=== PATIENT | male | born 1960 | race Hispanic/Latino ===

== ENCOUNTER 2022-02-05 05:51 | Emergency (ER) | payer OTHER, SELFPAY ==
[2022-02-05] MEDS ORDERED: Ketorolac Tromethamine 30 MG/ML VIAL ONE (06:12)
== END 2022-02-05 06:40 | disposition home or self-care (01) ==
LOC: ERS 05:51
DX: S29.011A Strain of muscle and tendon of front wall of thorax, initial encounter (principal); E11.9 Type 2 diabetes mellitus without complications; F17.210 Nicotine dependence, cigarettes, uncomplicated; X50.0XXA Overexertion from strenuous movement or load, initial encounter
CPT/HCPCS: 96372; 99283; J1885

== ENCOUNTER 2022-04-12 06:17 | Emergency (ER) | payer BC, SELFPAY ==
[2022-04-12 07:18] LABS: #Eosinphils 0.3 thou/uL (0.0-0.7); #Lymphocytes 1.7 thou/uL (1.20-3.40); #Monocytes 0.5 thou/uL (0.11-0.59); #Neutrophils 4.1 thou/uL (1.40-6.50); %Basophils 0.3 % (0.0-1.0); %Eosinophils 4.4 % (0.0-10.0); %Lymphocytes 25.9 % (21.0-51.0); %Monocytes 8.1 % (0.0-10.0); %Neutrophils 61.3 % (42.0-75.0); Hemoglobin 12.6 g/dL (14.0-18.0); Mean Corpuscular HGB CONC 32.9 g/dL (32.0-36.0); Mean Corpuscular Hemoglobin 29.5 pg (27.0-31.0); Mean Corpuscular Volume 89.8 fL (78.0-98.0); Mean Platelet Volume 8.7 fL (7.4-10.4); Platelet Count 196 thou/uL (130-400); RBC Distribution Width 12.9 % (11.5-14.5); Red Blood Cell (RBC) Count 4.28 mill/uL (4.70-6.10); White Blood Cell (WBC) Count 6.7 thou/uL (4.8-10.8)
[2022-04-12 07:28] LABS: ALT (SGPT) 66 U/L (8-55); AST (SGOT) 89 U/L (5-34); Albumin 2.9 g/dL (3.5-5.0); Alkaline Phosphatase 226 U/L (40-110); Anion Gap 13 mmol/L (10-20); BUN (Urea Nitrogen) 13 mg/dL (8.4-25.7); Calc. Creatinine Clearance 0 mL/min (70-130); Calcium 8.9 mg/dL (7.8-10.44); Carbon Dioxide 23 mmol/L (22-29); Chloride 102 mmol/L (98-107); Globulin 4.6 g/dL (2.4-3.5); Glucose 258 mg/dL (70-105); Potassium 4.2 mmol/L (3.5-5.1); Protein, Total 7.5 g/dL (6.0-8.3); Sodium 134 mmol/L (136-145)
== END 2022-04-12 08:15 | disposition home or self-care (01) ==
LOC: ERS 06:17
DX: R06.02 Shortness of breath (principal); R06.4 Hyperventilation; I10 Essential (primary) hypertension; E11.9 Type 2 diabetes mellitus without complications; F17.210 Nicotine dependence, cigarettes, uncomplicated; Z79.84 Long term (current) use of oral hypoglycemic drugs; Z79.899 Other long term (current) drug therapy
CPT/HCPCS: 36415; 36416; 71045; 80053; 83880; 84484; 85025; 93005

== ENCOUNTER 2023-07-20 12:22 | Inpatient (IN) | payer BC, SELFPAY ==
[2023-07-20 12:56] LABS: #Eosinphils 0.1 thou/uL (0.0-0.7); #Monocytes 1.2 thou/uL (0.11-0.59); #Neutrophils 13.4 thou/uL (1.40-6.50); %Basophils 0.2 % (0.0-1.0); %Eosinophils 0.3 % (0.0-10.0); %Lymphocytes 8.7 % (21.0-51.0); %Monocytes 7.2 % (0.0-10.0); %Neutrophils 82.8 % (42.0-75.0); Hemoglobin 6.7 g/dL (14.0-18.0); Mean Corpuscular HGB CONC 27.9 g/dL (32.0-36.0); Mean Corpuscular Hemoglobin 17.8 pg (27.0-31.0); Mean Corpuscular Volume 63.8 fl (78.0-98.0); Mean Platelet Volume 8.6 fL (7.4-10.4); Platelet Count 328 10x3/uL (130-400); RBC Distribution Width 17.1 % (11.5-14.5); Red Blood Cell (RBC) Count 3.76 mill/uL (4.70-6.10); White Blood Cell (WBC) Count 16.2 10x3/uL (4.8-10.8)
[2023-07-20 13:26] LABS: ALT (SGPT) 21 U/L (8-55); AST (SGOT) 40 U/L (5-34); Albumin 2.4 g/dL (3.4-4.8); Alkaline Phosphatase 165 U/L (40-110); Anion Gap 10 mmol/L (10-20); BUN (Urea Nitrogen) 14 mg/dL (8.4-25.7); Bilirubin, Total 0.6 mg/dL (0.2-1.2); Calc. Creatinine Clearance 0 mL/min (70-130); Calcium 8.4 mg/dL (7.8-10.44); Carbon Dioxide 20 mmol/L (23-31); Chloride 100 mmol/L (98-107); Estimated GFR 101; Globulin 5.4 g/dL (2.4-3.5); Glucose 170 mg/dL (80-115); Protein, Total 7.8 g/dL (5.8-8.1); Sodium 126 mmol/L (136-145)
[2023-07-20 13:34] LABS: Anisocytosis SLIGHT = 6-15 cells HPF (0-5); CellaVision Operator ID LAB.MJL; Hypochromia SLIGHT = 6-15 cells HPF (0-5); Microcytosis SLIGHT = 6-15 cells HPF (0-5); Ovalocytes SLIGHT = 2-5 cells HPF (0-1); Platelet Adequacy Comment Platelets Normal; Polychromasia SLIGHT = 2-3 cells HPF (0-2)
[2023-07-20 13:49] LABS: PTT 35.6 sec (22.9-36.1); Prothrombin Time 13.6 sec (12.0-14.7)
[2023-07-20] MEDS ORDERED: Vancomycin 1 GM/200 ML (FROZEN) BAG ONE (14:22)
[2023-07-20] MEDS ORDERED: Morphine 4 MG/ML VIAL ONE (14:22)
[2023-07-20] MEDS ORDERED: Ondansetron PF 4 MG/2 ML Vial ONE (14:22)
[2023-07-20 14:40] LABS: Bacteria/HPF None Seen HPF (None Seen); Bilirubin Negative (Negative); Blood, Urine Trace (Negative); CAUTI Indications for Culture Pelvic or flank pain; Clarity Clear (Clear); Glucose, Urine (Dipstick) 30 mg/dL (Negative); Ketone, Urine Negative (Negative); Leukocyte Negative Leu/uL (Negative); Nitrite Negative (Negative); Protein, Urine (Dipstick) 300 mg/dL (Neg-Trace); RBC/HPF 0-3 HPF (0-3); Specific Gravity, Urine 1.015 (1.002-1.036); Squamous Epithelial None Seen HPF (0-3); WBC/HPF 0-3 HPF (0-3)
[2023-07-20 14:42] LABS: Urine Culture Reflex No No
[2023-07-20] MEDS ORDERED: Cefepime 2 GM VIAL ONE (15:27)
[2023-07-20] MEDS ORDERED: Clindamycin/D5W 900 MG in Premix Bag 1 BAG IVPB SCH (15:30)
[2023-07-20] MEDS ORDERED: Dextrose 5% in Water 1,000 ML IV PRN (16:33)
[2023-07-20] MEDS ORDERED: Ondansetron ODT 4 MG TAB PO PRN (16:33)
[2023-07-20] MEDS ORDERED: Glucagon 1 MG/ML KIT IM PRN (16:33)
[2023-07-20] MEDS ORDERED: Acetaminophen 325 MG TAB PO PRN (16:33)
[2023-07-20] MEDS ORDERED: Dextrose 50% Abboject 50 ML SYRINGE SLOW IVP PRN (16:33)
[2023-07-20] MEDS ORDERED: HumaLOG 300 UNITS/3 ML VIAL SC PRN (16:44)
[2023-07-20] MEDS ORDERED: Sodium Chloride 0.9% 1,000 ML IV SCH (17:15)
[2023-07-20 20:00] LABS: Iron 34 ug/dL (65-175); Iron Binding Capacity, Total 351 mcg/dL (261-462)
[2023-07-20] MEDS: Gabapentin 300 MG CAP PO SCH (20:59)
[2023-07-20] MEDS: metFORMIN 500 MG TAB PO SCH (21:02)
[2023-07-20 23:40] VITALS: BMI 29.7
[2023-07-21] MEDS ORDERED: Clindamycin/D5W 900 MG in Premix Bag 1 BAG IVPB SCH (01:00)
[2023-07-21 01:03] LABS: Hematocrit 23.6 % (42.0-52.0); Platelet Count 278 10x3/uL (130-400)
[2023-07-21] MEDS: Clindamycin 150 MG CAP PO SCH ×2 (01:56→09:52)
[2023-07-21] MEDS ORDERED: Cefepime 1 GM in Sodium Chloride 0.9% 100 ML IVPB SCH (04:00)
[2023-07-21 05:25] LABS: #Basophils 0.1 thou/uL (0.0-0.2); #Eosinphils 0.3 thou/uL (0.0-0.7); #Monocytes 1.5 thou/uL (0.11-0.59); #Neutrophils 15.3 thou/uL (1.40-6.50); %Basophils 0.4 % (0.0-1.0); %Eosinophils 1.5 % (0.0-10.0); %Lymphocytes 7.5 % (21.0-51.0); %Monocytes 7.9 % (0.0-10.0); %Neutrophils 81.6 % (42.0-75.0); Hematocrit 23.6 % (42.0-52.0); Hemoglobin 6.8 g/dL (14.0-18.0); Mean Corpuscular HGB CONC 28.8 g/dL (32.0-36.0); Mean Corpuscular Hemoglobin 19.2 pg (27.0-31.0); Mean Platelet Volume 8.5 fL (7.4-10.4); Platelet Count 293 10x3/uL (130-400); RBC Distribution Width 18.9 % (11.5-14.5); Red Blood Cell (RBC) Count 3.55 mill/uL (4.70-6.10); White Blood Cell (WBC) Count 18.8 10x3/uL (4.8-10.8)
[2023-07-21 05:30] LABS: Mean Corpuscular Volume 66.5 fl (78.0-98.0)
[2023-07-21 05:53] LABS: ALT (SGPT) 20 U/L (8-55); AST (SGOT) 33 U/L (5-34); Alkaline Phosphatase 168 U/L (40-110); Anion Gap 8 mmol/L (10-20); BUN (Urea Nitrogen) 11 mg/dL (8.4-25.7); Bilirubin, Total 0.8 mg/dL (0.2-1.2); Calc. Creatinine Clearance 137 mL/min (70-130); Calcium 7.8 mg/dL (7.8-10.44); Carbon Dioxide 21 mmol/L (23-31); Chloride 103 mmol/L (98-107); Estimated GFR 105; Globulin 4.8 g/dL (2.4-3.5); Glucose 168 mg/dL (80-115); Potassium 3.6 mmol/L (3.5-5.1); Protein, Total 6.8 g/dL (5.8-8.1); Sodium 128 mmol/L (136-145)
[2023-07-21] MEDS ORDERED: Sodium Chloride 0.9% 1,000 ML IV SCH (08:15)
[2023-07-21] MEDS ORDERED: Ferrous Sulfate 325 MG TAB PO SCH (08:30)
[2023-07-21] MEDS ORDERED: Lisinopril 2.5 MG TAB PO SCH (09:00)
[2023-07-21] MEDS ORDERED: Liraglutide [Victoza 2-Pak] 0.6 MG/0.1 ML Pen.Injctr SC SCH (09:00)
[2023-07-21] MEDS ORDERED: Lisinopril 5 MG TAB PO SCH (09:00)
[2023-07-21] MEDS ORDERED: Furosemide 20 MG/2 ML VIAL SLOW IVP SCH (09:00)
[2023-07-21] MEDS: metFORMIN 500 MG TAB PO SCH ×2 (09:42→19:59)
[2023-07-21] MEDS: Gabapentin 300 MG CAP PO SCH ×3 (09:42→19:58)
[2023-07-21] MEDS: Amitriptyline HCl 25 MG TAB PO SCH (09:43)
[2023-07-21] MEDS: Sodium Chloride 0.9% 1,000 ML IV SCH ×2 (14:03→23:34)
[2023-07-21] MEDS ORDERED: Cefepime 2 GM in Sodium Chloride 0.9% 100 ML IVPB SCH (16:00)
[2023-07-21 17:55] LABS: Hematocrit 27.3 % (42.0-52.0); Hemoglobin 8.1 g/dL (14.0-18.0)
[2023-07-21] MEDS: Ketorolac Tromethamine 30 MG/ML VIAL IVP PRN (19:57)
[2023-07-21] MEDS: Linezolid 600 MG TAB PO SCH (19:59)
[2023-07-22 04:43] LABS: #Basophils 0.1 thou/uL (0.0-0.2); #Eosinphils 0.5 thou/uL (0.0-0.7); #Monocytes 1.4 thou/uL (0.11-0.59); #Neutrophils 14.2 thou/uL (1.40-6.50); %Basophils 0.3 % (0.0-1.0); %Eosinophils 2.8 % (0.0-10.0); %Lymphocytes 8.5 % (21.0-51.0); %Monocytes 7.4 % (0.0-10.0); %Neutrophils 77.7 % (42.0-75.0); Hematocrit 26.2 % (42.0-52.0); Hemoglobin 7.8 g/dL (14.0-18.0); Mean Corpuscular HGB CONC 29.8 g/dL (32.0-36.0); Mean Corpuscular Hemoglobin 20.6 pg (27.0-31.0); Mean Platelet Volume 8.4 fL (7.4-10.4); Platelet Count 299 10x3/uL (130-400); RBC Distribution Width 20.6 % (11.5-14.5); Red Blood Cell (RBC) Count 3.79 mill/uL (4.70-6.10); White Blood Cell (WBC) Count 18.3 10x3/uL (4.8-10.8)
[2023-07-22 04:44] LABS: Mean Corpuscular Volume 69.1 fl (78.0-98.0)
[2023-07-22 05:10] LABS: ALT (SGPT) 17 U/L (8-55); AST (SGOT) 34 U/L (5-34); Albumin 1.9 g/dL (3.4-4.8); Alkaline Phosphatase 171 U/L (40-110); Anion Gap 10 mmol/L (10-20); BUN (Urea Nitrogen) 9 mg/dL (8.4-25.7); Bilirubin, Total 0.6 mg/dL (0.2-1.2); Calc. Creatinine Clearance 130 mL/min (70-130); Calcium 7.9 mg/dL (7.8-10.44); Carbon Dioxide 20 mmol/L (23-31); Chloride 105 mmol/L (98-107); Estimated GFR 104; Globulin 4.8 g/dL (2.4-3.5); Glucose 151 mg/dL (80-115); Potassium 3.6 mmol/L (3.5-5.1); Protein, Total 6.7 g/dL (5.8-8.1); Sodium 131 mmol/L (136-145)
[2023-07-22 05:14] LABS: Anisocytosis MODERATE=16-30 cells HPF (0-5); CellaVision Operator ID lab.sh2; Hypochromia MODERATE=16-30 cells HPF (0-5); Macrocytosis SLIGHT = 6-15 cells HPF (0-5); Microcytosis SLIGHT = 6-15 cells HPF (0-5); Platelet Adequacy Comment Platelets Normal; Poikilocytosis SLIGHT = 6-15 cells HPF (0-5); Polychromasia MODERATE = 3-4 cells HPF (0-2)
[2023-07-22] MEDS: HumaLOG 300 UNITS/3 ML VIAL SC PRN (06:27)
[2023-07-22] MEDS: Linezolid 600 MG TAB PO SCH ×2 (09:18→20:07)
[2023-07-22] MEDS: Gabapentin 300 MG CAP PO SCH ×3 (09:18→20:07)
[2023-07-22] MEDS: metFORMIN 500 MG TAB PO SCH ×2 (09:19→20:08)
[2023-07-22] MEDS: Amitriptyline HCl 25 MG TAB PO SCH (09:19)
[2023-07-22] MEDS: Lisinopril 10 MG TAB PO SCH (09:19)
[2023-07-22] MEDS: Ketorolac Tromethamine 30 MG/ML VIAL IVP PRN (15:08)
[2023-07-22] MEDS ORDERED: Lidocaine 1% w/Epinephrine 1:100K 20 ML VIAL ONE (16:11)
[2023-07-22 17:39] LABS: Synovial Fluid, Protein 3.5 g/dL (Not Available); Synovial Fluid, Uric Acid 5.5 mg/dL (Not Available)
[2023-07-22 20:08] LABS: RBC Count-Automated (BF) 4748 /cu.mm; WBC/Nucleated-Auto (BF) 22920 /cu.mm
[2023-07-22 20:13] LABS: BF Color Yellow; Body Fluid Source Synovial Fluid; Clarity Cloudy/Turbid (Clear); Tube # EDTA
[2023-07-22 20:15] LABS: BF Segmented Neutrophils 81 %; Cell Count Non Hematic 18 %; Lymphocytes 1 %
[2023-07-23 04:07] LABS: #Basophils 0.1 thou/uL (0.0-0.2); #Eosinphils 0.5 thou/uL (0.0-0.7); #Monocytes 1.1 thou/uL (0.11-0.59); #Neutrophils 11.2 thou/uL (1.40-6.50); %Basophils 0.3 % (0.0-1.0); %Eosinophils 3.6 % (0.0-10.0); %Lymphocytes 10.8 % (21.0-51.0); Hematocrit 26.8 % (42.0-52.0); Hemoglobin 7.8 g/dL (14.0-18.0); Mean Corpuscular HGB CONC 29.1 g/dL (32.0-36.0); Mean Corpuscular Volume 68.7 fl (78.0-98.0); Mean Platelet Volume 8.4 fL (7.4-10.4); Platelet Count 328 10x3/uL (130-400); RBC Distribution Width 21.1 % (11.5-14.5); White Blood Cell (WBC) Count 14.9 10x3/uL (4.8-10.8)
[2023-07-23 04:31] LABS: ALT (SGPT) 16 U/L (8-55); AST (SGOT) 36 U/L (5-34); Alkaline Phosphatase 179 U/L (40-110); Anion Gap 12 mmol/L (10-20); BUN (Urea Nitrogen) 9 mg/dL (8.4-25.7); Bilirubin, Total 0.3 mg/dL (0.2-1.2); Calc. Creatinine Clearance 135 mL/min (70-130); Calcium 7.9 mg/dL (7.8-10.44); Carbon Dioxide 18 mmol/L (23-31); Chloride 103 mmol/L (98-107); Estimated GFR 105; Globulin 4.9 g/dL (2.4-3.5); Glucose 156 mg/dL (80-115); Potassium 3.7 mmol/L (3.5-5.1); Protein, Total 6.9 g/dL (5.8-8.1); Sodium 129 mmol/L (136-145)
[2023-07-23] MEDS: Ketorolac Tromethamine 30 MG/ML VIAL IVP PRN ×2 (05:28→17:29)
[2023-07-23] MEDS: Lactated Ringer's 1,000 ML IV SCH ×2 (06:42→15:38)
[2023-07-23] MEDS: Gabapentin 300 MG CAP PO SCH ×3 (09:34→20:57)
[2023-07-23] MEDS: Lisinopril 10 MG TAB PO SCH (09:34)
[2023-07-23] MEDS: metFORMIN 500 MG TAB PO SCH ×2 (09:34→20:57)
[2023-07-23] MEDS: Linezolid 600 MG TAB PO SCH ×2 (09:34→20:57)
[2023-07-23] MEDS: Ferrous Sulfate 325 MG TAB PO SCH (09:34)
[2023-07-24] MEDS: Morphine 2 MG/ML VIAL SLOW IVP PRN ×3 (00:31→23:33)
[2023-07-24 05:21] LABS: #Basophils 0.1 thou/uL (0.0-0.2); #Eosinphils 0.6 thou/uL (0.0-0.7); #Monocytes 0.7 thou/uL (0.11-0.59); #Neutrophils 9.4 thou/uL (1.40-6.50); %Basophils 0.6 % (0.0-1.0); %Eosinophils 4.7 % (0.0-10.0); %Lymphocytes 13.1 % (21.0-51.0); %Monocytes 5.8 % (0.0-10.0); %Neutrophils 74.1 % (42.0-75.0); Hematocrit 28.5 % (42.0-52.0); Hemoglobin 8.2 g/dL (14.0-18.0); Mean Corpuscular HGB CONC 28.8 g/dL (32.0-36.0); Mean Corpuscular Hemoglobin 19.9 pg (27.0-31.0); Mean Corpuscular Volume 69.2 fl (78.0-98.0); Mean Platelet Volume 8.5 fL (7.4-10.4); Platelet Count 369 10x3/uL (130-400); RBC Distribution Width 21.3 % (11.5-14.5); Red Blood Cell (RBC) Count 4.12 mill/uL (4.70-6.10); White Blood Cell (WBC) Count 12.7 10x3/uL (4.8-10.8)
[2023-07-24 05:54] LABS: ALT (SGPT) 16 U/L (8-55); AST (SGOT) 31 U/L (5-34); Alkaline Phosphatase 177 U/L (40-110); Anion Gap 13 mmol/L (10-20); BUN (Urea Nitrogen) 11 mg/dL (8.4-25.7); Bilirubin, Total 0.3 mg/dL (0.2-1.2); Calc. Creatinine Clearance 126 mL/min (70-130); Calcium 8.3 mg/dL (7.8-10.44); Carbon Dioxide 18 mmol/L (23-31); Chloride 103 mmol/L (98-107); Estimated GFR 103; Globulin 5.1 g/dL (2.4-3.5); Glucose 127 mg/dL (80-115); Potassium 3.9 mmol/L (3.5-5.1); Protein, Total 7.1 g/dL (5.8-8.1); Sodium 130 mmol/L (136-145)
[2023-07-24 07:25] LABS: CellaVision Operator ID LAB.CMB; Elliptocytes SLIGHT = 2-5 cells HPF (0-1); Large Platelets 1.9 % (0-5); Macrocytosis SLIGHT = 6-15 cells HPF (0-5); Platelet Adequacy Comment Platelets Normal; Polychromasia MODERATE = 3-4 cells HPF (0-2)
[2023-07-24] MEDS: metFORMIN 500 MG TAB PO SCH ×2 (08:07→20:27)
[2023-07-24] MEDS: Gabapentin 300 MG CAP PO SCH ×3 (08:08→20:27)
[2023-07-24] MEDS: Linezolid 600 MG TAB PO SCH ×2 (08:08→20:27)
[2023-07-24] MEDS: Lisinopril 10 MG TAB PO SCH (08:09)
[2023-07-24] MEDS: Ketorolac Tromethamine 30 MG/ML VIAL IVP PRN (12:03)
[2023-07-25 06:11] LABS: #Basophils 0.1 thou/uL (0.0-0.2); #Eosinphils 0.6 thou/uL (0.0-0.7); #Monocytes 0.7 thou/uL (0.11-0.59); #Neutrophils 9.4 thou/uL (1.40-6.50); %Basophils 0.4 % (0.0-1.0); %Eosinophils 4.4 % (0.0-10.0); %Lymphocytes 12.9 % (21.0-51.0); %Monocytes 5.5 % (0.0-10.0); %Neutrophils 75.7 % (42.0-75.0); Hematocrit 27.5 % (42.0-52.0); Hemoglobin 7.9 g/dL (14.0-18.0); Mean Corpuscular HGB CONC 28.7 g/dL (32.0-36.0); Mean Corpuscular Hemoglobin 19.9 pg (27.0-31.0); Mean Corpuscular Volume 69.4 fl (78.0-98.0); Mean Platelet Volume 8.2 fL (7.4-10.4); Platelet Count 352 10x3/uL (130-400); RBC Distribution Width 21.7 % (11.5-14.5); Red Blood Cell (RBC) Count 3.96 mill/uL (4.70-6.10); White Blood Cell (WBC) Count 12.4 10x3/uL (4.8-10.8)
[2023-07-25 06:33] LABS: ALT (SGPT) 17 U/L (8-55); AST (SGOT) 32 U/L (5-34); Albumin 1.9 g/dL (3.4-4.8); Alkaline Phosphatase 159 U/L (40-110); Anion Gap 14 mmol/L (10-20); BUN (Urea Nitrogen) 12 mg/dL (8.4-25.7); Bilirubin, Total 0.3 mg/dL (0.2-1.2); Calc. Creatinine Clearance 130 mL/min (70-130); Calcium 8.1 mg/dL (7.8-10.44); Carbon Dioxide 18 mmol/L (23-31); Chloride 103 mmol/L (98-107); Estimated GFR 104; Globulin 5.2 g/dL (2.4-3.5); Glucose 142 mg/dL (80-115); Magnesium 1.6 mg/dL (1.6-2.6); Potassium 4.5 mmol/L (3.5-5.1); Protein, Total 7.1 g/dL (5.8-8.1); Sodium 130 mmol/L (136-145)
[2023-07-25 06:56] LABS: CellaVision Operator ID lab.abc; Hypochromia SLIGHT = 6-15 cells HPF (0-5); Microcytosis SLIGHT = 6-15 cells HPF (0-5); Platelet Adequacy Comment Platelets Normal; Polychromasia SLIGHT = 2-3 cells HPF (0-2)
[2023-07-25] MEDS: metFORMIN 500 MG TAB PO SCH ×3 (09:38→20:39)
[2023-07-25] MEDS: Lisinopril 10 MG TAB PO SCH (09:38)
[2023-07-25] MEDS: Ferrous Sulfate 325 MG TAB PO SCH (09:38)
[2023-07-25] MEDS: Linezolid 600 MG TAB PO SCH ×2 (09:38→20:38)
[2023-07-25] MEDS: Gabapentin 300 MG CAP PO SCH ×3 (09:39→20:38)
[2023-07-25] MEDS ORDERED: Pantoprazole 40 MG VIAL IVP SCH (10:00)
[2023-07-25] MEDS ORDERED: Iopamidol-370 76% 500 ML MDV (1 ML CHARGE) ONE (11:23)
[2023-07-25] MEDS: oxyCODONE 5 MG TAB PO PRN ×2 (12:21→23:59)
[2023-07-25] MEDS ORDERED: GoLYTELY 4,000 ml Bottle PO SCH (18:45)
[2023-07-25] MEDS: Pantoprazole 40 MG VIAL IVP SCH (20:37)
[2023-07-25] MEDS: Morphine 2 MG/ML VIAL SLOW IVP PRN (20:43)
[2023-07-26] MEDS ORDERED: Octreotide Acetate 50 MCG/ML AMP SLOW IVP SCH (03:15)
[2023-07-26] MEDS: Octreotide Acetate 1,250 MCG in Sodium Chloride 0.9% 250 ML 250 ML IVPB SCH (04:45)
[2023-07-26 06:09] LABS: INR-International Normal Ratio 1.1; PTT 33.5 sec (22.9-36.1); Prothrombin Time 14.5 sec (12.0-14.7)
[2023-07-26 06:21] LABS: ALT (SGPT) 16 U/L (8-55); AST (SGOT) 38 U/L (5-34); Albumin 2.1 g/dL (3.4-4.8); Alkaline Phosphatase 161 U/L (40-110); Anion Gap 12 mmol/L (10-20); BUN (Urea Nitrogen) 9 mg/dL (8.4-25.7); Bilirubin, Total 0.4 mg/dL (0.2-1.2); Calc. Creatinine Clearance 131 mL/min (70-130); Calcium 8.4 mg/dL (7.8-10.44); Carbon Dioxide 21 mmol/L (23-31); Chloride 102 mmol/L (98-107); Estimated GFR 104; Globulin 5.6 g/dL (2.4-3.5); Glucose 109 mg/dL (80-115); Magnesium 1.6 mg/dL (1.6-2.6); Potassium 4.2 mmol/L (3.5-5.1); Protein, Total 7.7 g/dL (5.8-8.1); Sodium 131 mmol/L (136-145)
[2023-07-26 06:44] LABS: HBSAg Index 0.26 S/CO (0-0.99); Hep B Surf Ag Non-Reactive S/CO (NonReactive)
[2023-07-26 06:45] LABS: HBSAB Concentration 394.48 mIU/mL; Hep B Surf AB Reactive (NonReactive); Hep C IgG Ab Reflex HepC Qnt S/CO (NonReactive); Hep C Index 17.07 S/CO (0-0.79)
[2023-07-26 06:50] LABS: #Eosinphils 0.7 thou/uL (0.0-0.7); %Basophils 0.2 % (0.0-1.0); %Eosinophils 3.8 % (0.0-10.0); %Lymphocytes 8.9 % (21.0-51.0); %Monocytes 5.3 % (0.0-10.0); Mean Corpuscular HGB CONC 29.7 g/dL (32.0-36.0); Mean Corpuscular Hemoglobin 20.8 pg (27.0-31.0); Mean Platelet Volume 8.9 fL (7.4-10.4); Platelet Count 447 10x3/uL (130-400); RBC Distribution Width 21.4 % (11.5-14.5); Red Blood Cell (RBC) Count 2.07 mill/uL (4.70-6.10); White Blood Cell (WBC) Count 18.5 10x3/uL (4.8-10.8)
[2023-07-26 07:34] LABS: Anisocytosis SLIGHT = 6-15 cells HPF (0-5); CellaVision Operator ID lab.dlt; Hypochromia SLIGHT = 6-15 cells HPF (0-5); Large Platelets 1.7 % (0-5); Microcytosis SLIGHT = 6-15 cells HPF (0-5); Platelet Adequacy Comment Platelets Increased; Polychromasia SLIGHT = 2-3 cells HPF (0-2)
[2023-07-26 07:36] LABS: Hemoglobin 4.3 g/dL (14.0-18.0)
[2023-07-26 07:37] LABS: Hematocrit 14.5 % (42.0-52.0)
[2023-07-26 08:05] LABS: Hemoglobin 8.6 g/dL (14.0-18.0)
[2023-07-26 08:06] LABS: Hematocrit 28.9 % (42.0-52.0)
[2023-07-26] MEDS: Gabapentin 300 MG CAP PO SCH ×3 (08:48→20:27)
[2023-07-26] MEDS: Pantoprazole 40 MG VIAL IVP SCH ×2 (08:48→20:28)
[2023-07-26] MEDS: Lisinopril 10 MG TAB PO SCH (08:48)
[2023-07-26] MEDS: metFORMIN 500 MG TAB PO SCH ×2 (08:48→20:27)
[2023-07-26] MEDS: Linezolid 600 MG TAB PO SCH ×2 (08:48→20:27)
[2023-07-26 09:43] LABS: Creatinine, Urine 43.03 mg/dL (63-166)
[2023-07-26] MEDS ORDERED: fentaNYL PF 100 MCG/2 ML SYRINGE ONE (11:33)
[2023-07-26] MEDS ORDERED: Ondansetron PF 4 MG/2 ML Vial ONE (12:36)
[2023-07-26] MEDS ORDERED: Ondansetron HCl/PF 4 MG/2 ML Vial IVP PRN (13:15)
[2023-07-26] MEDS ORDERED: Promethazine HCl 25 MG/ML VIAL IM PRN (13:15)
[2023-07-26] MEDS ORDERED: HYDROmorphone 2 MG/ML VIAL SLOW IVP PRN (13:15)
[2023-07-26] MEDS ORDERED: HYDROmorphone 0.5 MG/0.5 ML SYRINGE ONE ×2 (13:16→13:34)
[2023-07-26] MEDS ORDERED: fentaNYL 50 mcg/mL 1 mL Vial ONE (13:47)
[2023-07-26] MEDS: CEFAZOLIN 2 GM in Sodium Chloride 0.9% 100 ML IVPB SCH ×2 (14:45→21:07)
[2023-07-26] MEDS: oxyCODONE 5 MG TAB PO PRN (20:33)
[2023-07-27] MEDS: oxyCODONE 5 MG TAB PO PRN ×2 (03:11→20:27)
[2023-07-27] MEDS: CEFAZOLIN 2 GM in Sodium Chloride 0.9% 100 ML IVPB SCH ×3 (05:05→21:53)
[2023-07-27] MEDS: Albumin 25% 25 GM/100 ML BOT IVPB SCH ×4 (06:15→23:51)
[2023-07-27] MEDS: Octreotide Acetate 1,250 MCG in Sodium Chloride 0.9% 250 ML 250 ML IVPB SCH (06:15)
[2023-07-27 06:34] LABS: #Eosinphils 0.3 thou/uL (0.0-0.7); #Monocytes 0.6 thou/uL (0.11-0.59); #Neutrophils 9.3 thou/uL (1.40-6.50); %Basophils 0.4 % (0.0-1.0); %Eosinophils 2.7 % (0.0-10.0); %Lymphocytes 9.5 % (21.0-51.0); %Monocytes 5.1 % (0.0-10.0); %Neutrophils 81.9 % (42.0-75.0); Hematocrit 26.8 % (42.0-52.0); Hemoglobin 7.8 g/dL (14.0-18.0); Mean Corpuscular HGB CONC 29.1 g/dL (32.0-36.0); Mean Corpuscular Hemoglobin 20.4 pg (27.0-31.0); Mean Platelet Volume 8.1 fL (7.4-10.4); Red Blood Cell (RBC) Count 3.83 mill/uL (4.70-6.10); White Blood Cell (WBC) Count 11.3 10x3/uL (4.8-10.8)
[2023-07-27 06:38] LABS: Platelet Count 310 10x3/uL (130-400)
[2023-07-27 07:03] LABS: ALT (SGPT) 16 U/L (8-55); AST (SGOT) 42 U/L (5-34); Albumin 1.9 g/dL (3.4-4.8); Alkaline Phosphatase 157 U/L (40-110); Anion Gap 12 mmol/L (10-20); BUN (Urea Nitrogen) 9 mg/dL (8.4-25.7); Bilirubin, Total 0.4 mg/dL (0.2-1.2); Calc. Creatinine Clearance 145 mL/min (70-130); Calcium 8.2 mg/dL (7.8-10.44); Carbon Dioxide 24 mmol/L (23-31); Chloride 101 mmol/L (98-107); Estimated GFR 107; Globulin 5.3 g/dL (2.4-3.5); Glucose 143 mg/dL (80-115); Magnesium 1.5 mg/dL (1.6-2.6); Potassium 4.5 mmol/L (3.5-5.1); Protein, Total 7.2 g/dL (5.8-8.1); Sodium 132 mmol/L (136-145)
[2023-07-27] MEDS: Iron, Sodium Ferric Gluconate 250 MG in Sodium Chloride 0.9% 250 ML 250 ML IVPB SCH (07:41)
[2023-07-27] MEDS ORDERED: Magnesium Sulfate In Water 4 GM in Premix Bag 1 BAG IVPB SCH (09:00)
[2023-07-27] MEDS: Gabapentin 300 MG CAP PO SCH ×3 (10:04→20:22)
[2023-07-27] MEDS: metFORMIN 500 MG TAB PO SCH ×2 (10:04→20:22)
[2023-07-27] MEDS: Linezolid 600 MG TAB PO SCH ×2 (10:04→20:22)
[2023-07-27] MEDS: Lisinopril 20 MG TAB PO SCH (10:05)
[2023-07-27] MEDS: Pantoprazole 40 MG VIAL IVP SCH ×2 (10:06→20:21)
[2023-07-27] MEDS: Saccharomyces boulardii 250 MG CAP PO SCH (13:47)
[2023-07-27] MEDS ORDERED: GoLYTELY 4,000 ml Bottle PO SCH (17:00)
[2023-07-28] MEDS: CEFAZOLIN 2 GM in Sodium Chloride 0.9% 100 ML IVPB SCH ×2 (05:03→13:42)
[2023-07-28] MEDS: oxyCODONE 5 MG TAB PO PRN (05:34)
[2023-07-28] MEDS: Gabapentin 300 MG CAP PO SCH ×3 (08:34→20:07)
[2023-07-28] MEDS: Pantoprazole 40 MG VIAL IVP SCH (08:34)
[2023-07-28] MEDS: Lisinopril 20 MG TAB PO SCH (08:35)
[2023-07-28] MEDS: Empagliflozin 10 MG TAB PO SCH (08:35)
[2023-07-28] MEDS: Linezolid 600 MG TAB PO SCH ×2 (08:35→20:07)
[2023-07-28] MEDS ORDERED: Amlodipine 5 MG TAB PO SCH (09:00)
[2023-07-28] MEDS: Octreotide Acetate 1,250 MCG in Sodium Chloride 0.9% 250 ML 250 ML IVPB SCH (09:21)
[2023-07-28 10:15] LABS: HCV RNA, log10 5.423 (.); Hep C PCR-Quant 265000 IU/mL (.)
[2023-07-28] MEDS ORDERED: HYDROmorphone 2 MG/ML VIAL SLOW IVP PRN (10:43)
[2023-07-28] MEDS ORDERED: Ondansetron HCl/PF 4 MG/2 ML Vial IVP PRN (10:43)
[2023-07-28] MEDS ORDERED: Promethazine HCl 25 MG/ML VIAL IM PRN (10:43)
[2023-07-28] MEDS ORDERED: Morphine Sulfate 2 MG/ML SYRINGE SLOW IVP PRN (10:43)
[2023-07-28] MEDS ORDERED: PHENYLEPHRINE-NS 100 MCG/ML 10 ML SYRINGE ONE (10:51)
[2023-07-28] MEDS ORDERED: Lidocaine 1% PF 5 ML VIAL ONE (10:51)
[2023-07-28] MEDS ORDERED: PROPOFOL 200 MG/20 ML VIAL ONE (10:51)
[2023-07-28] MEDS: Iron, Sodium Ferric Gluconate 250 MG in Sodium Chloride 0.9% 250 ML 250 ML IVPB SCH ×2 (13:17→13:42)
[2023-07-28] MEDS: Saccharomyces boulardii 250 MG CAP PO SCH (13:42)
[2023-07-28 18:11] LABS: #Eosinphils 0.2 thou/uL (0.0-0.7); #Monocytes 0.6 thou/uL (0.11-0.59); #Neutrophils 7.6 thou/uL (1.40-6.50); %Basophils 0.3 % (0.0-1.0); %Eosinophils 2.3 % (0.0-10.0); %Lymphocytes 13.2 % (21.0-51.0); %Neutrophils 77.6 % (42.0-75.0); Hematocrit 28.4 % (42.0-52.0); Hemoglobin 8.1 g/dL (14.0-18.0); Mean Corpuscular HGB CONC 28.5 g/dL (32.0-36.0); Mean Corpuscular Hemoglobin 20.2 pg (27.0-31.0); Mean Corpuscular Volume 70.8 fl (78.0-98.0); Mean Platelet Volume 7.8 fL (7.4-10.4); Platelet Count 273 10x3/uL (130-400); RBC Distribution Width 22.2 % (11.5-14.5); Red Blood Cell (RBC) Count 4.01 mill/uL (4.70-6.10); White Blood Cell (WBC) Count 9.7 10x3/uL (4.8-10.8)
[2023-07-28 18:33] LABS: Phosphorus 2.6 mg/dL (2.3-4.7)
[2023-07-28 18:35] LABS: ALT (SGPT) 11 U/L (8-55); AST (SGOT) 31 U/L (5-34); Albumin 3.1 g/dL (3.4-4.8); Alkaline Phosphatase 123 U/L (40-110); Anion Gap 13 mmol/L (10-20); BUN (Urea Nitrogen) 7 mg/dL (8.4-25.7); Bilirubin, Total 0.4 mg/dL (0.2-1.2); Calc. Creatinine Clearance 124 mL/min (70-130); Carbon Dioxide 26 mmol/L (23-31); Chloride 100 mmol/L (98-107); Estimated GFR 102; Globulin 4.9 g/dL (2.4-3.5); Glucose 123 mg/dL (80-115); Magnesium 1.5 mg/dL (1.6-2.6); Potassium 4.3 mmol/L (3.5-5.1); Sodium 135 mmol/L (136-145)
[2023-07-28 18:41] LABS: CellaVision Operator ID LAB.KB; Hypochromia SLIGHT = 6-15 cells HPF (0-5); Microcytosis SLIGHT = 6-15 cells HPF (0-5); Platelet Adequacy Comment Platelets Normal; Polychromasia SLIGHT = 2-3 cells HPF (0-2)
[2023-07-28] MEDS ORDERED: Magnesium Sulfate In Water 4 GM in Premix Bag 1 BAG IVPB SCH (19:00)
[2023-07-29] MEDS: Nadolol 40 MG TAB PO SCH (09:26)
[2023-07-29] MEDS: Empagliflozin 10 MG TAB PO SCH (09:26)
[2023-07-29] MEDS: Gabapentin 300 MG CAP PO SCH ×3 (09:26→20:45)
[2023-07-29] MEDS: Linezolid 600 MG TAB PO SCH ×2 (09:27→20:46)
[2023-07-29] MEDS: Lisinopril 20 MG TAB PO SCH (09:27)
[2023-07-29] MEDS ORDERED: Magnevist 469MG/ML 20 ML VIAL ONE (11:40)
[2023-07-29] MEDS: Iron, Sodium Ferric Gluconate 250 MG in Sodium Chloride 0.9% 250 ML 250 ML IVPB SCH (14:52)
[2023-07-29 17:04] LABS: #Basophils 0.1 thou/uL (0.0-0.2); #Eosinphils 0.2 thou/uL (0.0-0.7); #Monocytes 0.7 thou/uL (0.11-0.59); #Neutrophils 6.9 thou/uL (1.40-6.50); %Basophils 0.5 % (0.0-1.0); %Eosinophils 2.1 % (0.0-10.0); %Lymphocytes 16.7 % (21.0-51.0); %Monocytes 7.3 % (0.0-10.0); %Neutrophils 72.7 % (42.0-75.0); Hematocrit 26.6 % (42.0-52.0); Hemoglobin 7.6 g/dL (14.0-18.0); Mean Corpuscular HGB CONC 28.6 g/dL (32.0-36.0); Mean Corpuscular Hemoglobin 20.2 pg (27.0-31.0); Mean Corpuscular Volume 70.7 fl (78.0-98.0); Mean Platelet Volume 8.1 fL (7.4-10.4); Platelet Count 262 10x3/uL (130-400); RBC Distribution Width 22.5 % (11.5-14.5); Red Blood Cell (RBC) Count 3.76 mill/uL (4.70-6.10); White Blood Cell (WBC) Count 9.5 10x3/uL (4.8-10.8)
[2023-07-29] MEDS ORDERED: Spironolactone 25 MG TAB PO SCH (17:15)
[2023-07-29] MEDS ORDERED: Amlodipine 5 MG TAB PO SCH (17:15)
[2023-07-29 17:32] LABS: ALT (SGPT) 9 U/L (8-55); AST (SGOT) 29 U/L (5-34); Albumin 2.8 g/dL (3.4-4.8); Alkaline Phosphatase 112 U/L (40-110); Anion Gap 12 mmol/L (10-20); BUN (Urea Nitrogen) 10 mg/dL (8.4-25.7); Bilirubin, Total 0.5 mg/dL (0.2-1.2); Calc. Creatinine Clearance 126 mL/min (70-130); Calcium 8.5 mg/dL (7.8-10.44); Carbon Dioxide 22 mmol/L (23-31); Chloride 99 mmol/L (98-107); Estimated GFR 103; Globulin 4.8 g/dL (2.4-3.5); Glucose 130 mg/dL (80-115); Magnesium 1.8 mg/dL (1.6-2.6); Potassium 3.9 mmol/L (3.5-5.1); Protein, Total 7.6 g/dL (5.8-8.1); Sodium 129 mmol/L (136-145)
[2023-07-30 06:38] LABS: #Eosinphils 0.3 thou/uL (0.0-0.7); #Monocytes 0.9 thou/uL (0.11-0.59); #Neutrophils 6.3 thou/uL (1.40-6.50); %Basophils 0.4 % (0.0-1.0); %Eosinophils 3.5 % (0.0-10.0); %Lymphocytes 19.6 % (21.0-51.0); %Monocytes 9.1 % (0.0-10.0); %Neutrophils 66.7 % (42.0-75.0); Hematocrit 24.6 % (42.0-52.0); Hemoglobin 7.1 g/dL (14.0-18.0); Mean Corpuscular HGB CONC 28.9 g/dL (32.0-36.0); Mean Corpuscular Hemoglobin 20.4 pg (27.0-31.0); Mean Corpuscular Volume 70.7 fl (78.0-98.0); Mean Platelet Volume 8.1 fL (7.4-10.4); Platelet Count 218 10x3/uL (130-400); RBC Distribution Width 22.5 % (11.5-14.5); Red Blood Cell (RBC) Count 3.48 mill/uL (4.70-6.10); White Blood Cell (WBC) Count 9.4 10x3/uL (4.8-10.8)
[2023-07-30 07:01] LABS: ALT (SGPT) 9 U/L (8-55); AST (SGOT) 31 U/L (5-34); Albumin 2.5 g/dL (3.4-4.8); Alkaline Phosphatase 109 U/L (40-110); Anion Gap 10 mmol/L (10-20); BUN (Urea Nitrogen) 10 mg/dL (8.4-25.7); Bilirubin, Total 0.4 mg/dL (0.2-1.2); Calc. Creatinine Clearance 124 mL/min (70-130); Calcium 8.3 mg/dL (7.8-10.44); Carbon Dioxide 24 mmol/L (23-31); Chloride 100 mmol/L (98-107); Estimated GFR 102; Globulin 4.5 g/dL (2.4-3.5); Glucose 149 mg/dL (80-115); Magnesium 1.7 mg/dL (1.6-2.6); Potassium 3.6 mmol/L (3.5-5.1); Sodium 130 mmol/L (136-145)
[2023-07-30] MEDS ORDERED: Spironolactone 25 MG TAB PO SCH ×2 (08:00→10:15)
[2023-07-30] MEDS ORDERED: fentaNYL 50 mcg/mL 1 mL Vial ONE (08:42)
[2023-07-30] MEDS ORDERED: Sodium Bicarbonate 2.5 MEQ/5 ML VIAL ONE (08:43)
[2023-07-30] MEDS ORDERED: Lidocaine 1% PF 5 ML VIAL ONE (08:43)
[2023-07-30] MEDS ORDERED: Midazolam HCl 2 mg/2 ml Vial ONE (08:43)
[2023-07-30 08:51] LABS: 24 Hr Creatinine 655.04 mg/24 hr (950-2490); Creatinine, Urine 20.47 mg/dL (63-166)
[2023-07-30] MEDS: Nadolol 40 MG TAB PO SCH (09:02)
[2023-07-30] MEDS: Amlodipine 5 MG TAB PO SCH (09:02)
[2023-07-30] MEDS: Gabapentin 300 MG CAP PO SCH ×3 (09:02→20:50)
[2023-07-30] MEDS: Lisinopril 20 MG TAB PO SCH (09:02)
[2023-07-30] MEDS: Empagliflozin 10 MG TAB PO SCH (09:03)
[2023-07-30] MEDS: Linezolid 600 MG TAB PO SCH ×2 (09:03→20:50)
[2023-07-30] MEDS ORDERED: Magnesium Oxide 400 MG TAB PO SCH (10:15)
[2023-07-30] MEDS: Albumin 25% 25 GM/100 ML BOT IVPB SCH ×2 (11:06→18:19)
[2023-07-30 13:39] LABS: A/G Ratio 0.3 (0.7-1.7); Albumin 1.8 g/dL (2.9-4.4); Alpha 1 0.4 g/dL (0.0-0.4); Alpha 2 1.1 g/dL (0.4-1.0); Beta 1.3 g/dL (0.7-1.3); Gamma 2.9 g/dL (0.4-1.8); Globulin, Total 5.6 g/dL (2.2-3.9); M-Spike Not Observed g/dL (Not Observed); Protein Electrophoresis Intrp Note: (.)
[2023-07-30] MEDS: Iron, Sodium Ferric Gluconate 250 MG in Sodium Chloride 0.9% 250 ML 250 ML IVPB SCH (16:19)
[2023-07-31] MEDS: Albumin 25% 25 GM/100 ML BOT IVPB SCH (00:09)
[2023-07-31 05:35] LABS: #Eosinphils 0.2 thou/uL (0.0-0.7); #Monocytes 0.8 thou/uL (0.11-0.59); #Neutrophils 5.5 thou/uL (1.40-6.50); %Basophils 0.5 % (0.0-1.0); %Eosinophils 2.7 % (0.0-10.0); %Monocytes 9.3 % (0.0-10.0); Hemoglobin 6.3 g/dL (14.0-18.0); Mean Corpuscular HGB CONC 28.6 g/dL (32.0-36.0); Mean Corpuscular Hemoglobin 20.3 pg (27.0-31.0); Mean Platelet Volume 8.5 fL (7.4-10.4); Platelet Count 213 10x3/uL (130-400); RBC Distribution Width 22.8 % (11.5-14.5); White Blood Cell (WBC) Count 8.1 10x3/uL (4.8-10.8)
[2023-07-31 06:07] LABS: ALT (SGPT) 11 U/L (8-55); AST (SGOT) 35 U/L (5-34); Albumin 3.2 g/dL (3.4-4.8); Alkaline Phosphatase 120 U/L (40-110); Anion Gap 12 mmol/L (10-20); BUN (Urea Nitrogen) 10 mg/dL (8.4-25.7); Bilirubin, Total 0.4 mg/dL (0.2-1.2); Calc. Creatinine Clearance 130 mL/min (70-130); Calcium 8.5 mg/dL (7.8-10.44); Carbon Dioxide 23 mmol/L (23-31); Chloride 102 mmol/L (98-107); Estimated GFR 104; Globulin 4.1 g/dL (2.4-3.5); Glucose 139 mg/dL (80-115); Magnesium 1.7 mg/dL (1.6-2.6); Potassium 3.8 mmol/L (3.5-5.1); Protein, Total 7.3 g/dL (5.8-8.1); Sodium 133 mmol/L (136-145)
[2023-07-31 06:14] LABS: Anisocytosis MODERATE=16-30 cells HPF (0-5); CellaVision Operator ID lab.sh2; Hypochromia SLIGHT = 6-15 cells HPF (0-5); Macrocytosis SLIGHT = 6-15 cells HPF (0-5); Platelet Adequacy Comment Platelets Normal; Polychromasia SLIGHT = 2-3 cells HPF (0-2)
[2023-07-31] MEDS: Gabapentin 300 MG CAP PO SCH ×3 (09:23→20:52)
[2023-07-31] MEDS: Amlodipine 5 MG TAB PO SCH (09:23)
[2023-07-31] MEDS: Lisinopril 20 MG TAB PO SCH (09:24)
[2023-07-31] MEDS: Spironolactone 100 MG TAB PO SCH (09:24)
[2023-07-31] MEDS: Nadolol 40 MG TAB PO SCH (09:24)
[2023-07-31] MEDS: Linezolid 600 MG TAB PO SCH (09:24)
[2023-07-31] MEDS: Empagliflozin 10 MG TAB PO SCH (09:24)
[2023-07-31] MEDS: Magnesium Oxide 400 MG TAB PO SCH (09:24)
[2023-07-31] MEDS ORDERED: Torsemide 10 MG TAB PO SCH (10:15)
[2023-07-31] MEDS: oxyCODONE 5 MG TAB PO PRN (14:15)
[2023-08-01 05:54] LABS: #Basophils 0.1 thou/uL (0.0-0.2); #Eosinphils 0.2 thou/uL (0.0-0.7); #Monocytes 0.7 thou/uL (0.11-0.59); #Neutrophils 5.8 thou/uL (1.40-6.50); %Basophils 0.6 % (0.0-1.0); %Eosinophils 2.5 % (0.0-10.0); %Lymphocytes 20.1 % (21.0-51.0); %Monocytes 8.5 % (0.0-10.0); %Neutrophils 67.8 % (42.0-75.0); Hematocrit 25.6 % (42.0-52.0); Hemoglobin 7.6 g/dL (14.0-18.0); Mean Corpuscular HGB CONC 29.7 g/dL (32.0-36.0); Mean Corpuscular Hemoglobin 21.7 pg (27.0-31.0); Mean Corpuscular Volume 72.9 fl (78.0-98.0); Mean Platelet Volume 8.8 fL (7.4-10.4); Platelet Count 202 10x3/uL (130-400); RBC Distribution Width 23.7 % (11.5-14.5); Red Blood Cell (RBC) Count 3.51 mill/uL (4.70-6.10); White Blood Cell (WBC) Count 8.5 10x3/uL (4.8-10.8)
[2023-08-01 06:18] LABS: ALT (SGPT) 12 U/L (8-55); AST (SGOT) 32 U/L (5-34); Albumin 3.1 g/dL (3.4-4.8); Alkaline Phosphatase 131 U/L (40-110); Anion Gap 13 mmol/L (10-20); BUN (Urea Nitrogen) 11 mg/dL (8.4-25.7); Bilirubin, Total 0.4 mg/dL (0.2-1.2); Calc. Creatinine Clearance 130 mL/min (70-130); Calcium 8.6 mg/dL (7.8-10.44); Carbon Dioxide 21 mmol/L (23-31); Chloride 101 mmol/L (98-107); Estimated GFR 104; Globulin 4.4 g/dL (2.4-3.5); Glucose 160 mg/dL (80-115); Potassium 3.7 mmol/L (3.5-5.1); Protein, Total 7.5 g/dL (5.8-8.1); Sodium 131 mmol/L (136-145)
[2023-08-01] MEDS: HumaLOG 300 UNITS/3 ML VIAL SC PRN (06:34)
[2023-08-01 08:21] VITALS: BP 161/69; TEMP 97.8
[2023-08-01] MEDS: Empagliflozin 10 MG TAB PO SCH (08:57)
[2023-08-01] MEDS: Gabapentin 300 MG CAP PO SCH (08:57)
[2023-08-01] MEDS: Nadolol 40 MG TAB PO SCH (08:57)
[2023-08-01] MEDS: Spironolactone 100 MG TAB PO SCH (08:57)
[2023-08-01] MEDS: Magnesium Oxide 400 MG TAB PO SCH (08:57)
[2023-08-01] MEDS: Lisinopril 20 MG TAB PO SCH (08:57)
[2023-08-01] MEDS ORDERED: Amlodipine 5 MG TAB PO SCH (09:00)
[2023-08-01] MEDS ORDERED: Torsemide 10 MG TAB PO SCH (09:00)
[2023-08-01] MEDS ORDERED: cefTRIAXone\\ROCEPHIN 2 GM in Sodium Chloride 0.9% 100 ML IVPB SCH (16:00)
[2023-08-02 15:13] LABS: Albumin, PEP 24hr Ur 55.2 % (NOT ESTAB.); Alpha-1-Globulin, PEP 24h Ur 5.9 % (NOT ESTAB.); Alpha-2-Globulin, PEP 24h Ur 6.7 % (NOT ESTAB.); Gamma Globulin, PEP 24h Ur 19.2 % (NOT ESTAB.); M-Spike,% PEP 24hr Ur Not Observed % (Not Observed); Protein, PEP 24hr calculated 5181 mg/24 hr (30-150); Protein, Urine 161.9 mg/dL (Not Estab.)
== END 2023-08-01 15:52 | disposition home or self-care (01) | DRG 872 ==
LOC: ERS 12:22 → ERHOLD 16:15 → 2NO 18:55 → OBSVTOIN 07-21 10:30 → T4-B 07-23 11:35
PROVIDERS: ADMIT Family Medicine; ATTEND Internal Medicine
PROC: 30233N1 Transfusion of Nonautologous Red Blood Cells into Peripheral Vein, Percutaneous Approach (ICD-10-PCS; 2023-07-20)
PROC: 3E03329 Introduction of Other Anti-infective into Peripheral Vein, Percutaneous Approach (ICD-10-PCS; 2023-07-20)
PROC: 0S9C3ZZ Drainage of Right Knee Joint, Percutaneous Approach (ICD-10-PCS; 2023-07-22)
PROC: 0J9N0ZZ Drainage of Right Lower Leg Subcutaneous Tissue and Fascia, Open Approach (ICD-10-PCS; 2023-07-26)
PROC: 0DB78ZX Excision of Stomach, Pylorus, Via Natural or Artificial Opening Endoscopic, Diagnostic (ICD-10-PCS; 2023-07-28)
PROC: 0DJD8ZZ Inspection of Lower Intestinal Tract, Via Natural or Artificial Opening Endoscopic (ICD-10-PCS; 2023-07-28)
PROC: 0TB13ZX Excision of Left Kidney, Percutaneous Approach, Diagnostic (ICD-10-PCS; principal; 2023-07-30)
DX: A40.0 Sepsis due to streptococcus, group A (principal); L03.115 Cellulitis of right lower limb; L02.415 Cutaneous abscess of right lower limb; D62 Acute posthemorrhagic anemia; E22.2 Syndrome of inappropriate secretion of antidiuretic hormone; I85.10 Secondary esophageal varices without bleeding; E46 Unspecified protein-calorie malnutrition; I10 Essential (primary) hypertension; F17.210 Nicotine dependence, cigarettes, uncomplicated; F10.90 Alcohol use, unspecified, uncomplicated; D53.9 Nutritional anemia, unspecified; R79.1 Abnormal coagulation profile; E11.65 Type 2 diabetes mellitus with hyperglycemia; M25.461 Effusion, right knee; B19.20 Unspecified viral hepatitis C without hepatic coma; D50.9 Iron deficiency anemia, unspecified; R79.89 Other specified abnormal findings of blood chemistry; R60.0 Localized edema; R80.9 Proteinuria, unspecified; E11.21 Type 2 diabetes mellitus with diabetic nephropathy; E88.09 Other disorders of plasma-protein metabolism, not elsewhere classified; K70.31 Alcoholic cirrhosis of liver with ascites; E83.42 Hypomagnesemia; K29.70 Gastritis, unspecified, without bleeding; K31.819 Angiodysplasia of stomach and duodenum without bleeding; K64.8 Other hemorrhoids; I27.20 Pulmonary hypertension, unspecified; Z79.84 Long term (current) use of oral hypoglycemic drugs; Z79.899 Other long term (current) drug therapy; Z98.890 Other specified postprocedural states; Z82.49 Family history of ischemic heart disease and other diseases of the circulatory system; Z80.3 Family history of malignant neoplasm of breast; Z68.29 Body mass index [BMI] 29.0-29.9, adult
CPT/HCPCS: 36415; 36416; 36430; 50200; 71046; 74183; 76705; 77012; 80053; 81001; 82105; 82570; 82595; 82728; 82945; 82977; 83540; 83550; 83605; 83735; 83880; 83930; 83935; 84100; 84155; 84156; 84157; 84165; 84166; 84300; 84443; 84560; 85025; 85060; 85379; 85610; 85730; 86140; 86160; 86706; 86708; 86803; 86850; 86900; 86901; 87040; 87070; 87076; 87077; 87205; 87340; 87522; 88305; 88313; 88329; 88342; 88346; 88348; 88350; 89051; 89060; 93005; 93306; 96361; 96365; 96366; 96367; 96372; 96375; 96376; 97139; A9579; C9113; G0378; J0692; J1170; J1650; J1815; J1885; J2250; J2270; J2272; J2354; J2405; J2704; J2916; J3010; J3370-JW; J3475; J3490; J7050; J7120; P9016; P9047; Q9967

== ENCOUNTER 2023-09-04 15:01 | Emergency (ER) | payer SELFPAY | END 2023-09-04 18:25 | disposition home or self-care (01) | LOC: ERS 15:01 | DX: M54.32 Sciatica, left side (principal); E11.9 Type 2 diabetes mellitus without complications; I10 Essential (primary) hypertension; F17.210 Nicotine dependence, cigarettes, uncomplicated | CPT/HCPCS: 72170 ==